=== PATIENT | male | born 1960 | race Caucasian/White ===

== ENCOUNTER 2017-07-21 | Emergency (ER) | payer MEDICAID, SELFPAY ==
[2017-07-21] VITALS: BP 166/91; PULSE 68; RESP 14; TEMP 36.7; O2SAT 98; BMI 31.4
--- NOTE | 2017-07-21 00:43 | CT_ITS ---
STUDY: CT BRAIN WITHOUT CONTRAST REASON FOR EXAM: Male, 57 years old. Right arm numbness and tingling. RADIATION DOSAGE (If Supplied By Facility): CTDIvol = ( 44.99 ) mGy, DLP = ( 846.73 ) mGycm TECHNIQUE: Transaxial CT imaging of the brain was performed without administration of intravenous contrast material. Individualized dose optimization techniques were used for this CT. COMPARISON: None. FINDINGS: Normal soft tissue structures. Normal calvarium. Normal size ventricles and extra-axial spaces for the patient's age. Normal white matter tracts of the cerebral hemispheres. Normal basal ganglia and thalami. Normal brainstem. Normal cerebellum. 3.5 x 2.0 cm posterior fossa midline cyst most compatible with either an arachnoid cyst or bailee cisterna magna, both of which are usually incidental findings. Mild scalloping of the inner cortex of the occipital bone left parasagittal which supports an arachnoid cyst. There is no intracranial hemorrhage. There are no findings of an acute ischemic infarction. 2.2 cm mucous retention cyst right maxillary sinus. Smaller bilateral maxillary sinus peripheral mucous retention cysts versus mucosal thickening right greater than left. Mild ethmoid sinus mucosal thickening. Large right tracy bullosa. CT/Brain/Head without Contrast IMPRESSION: No acute intracranial abnormality. If there is high clinical suspicion of an acute infarction if further imaging is warranted recommend MRI with diffusion-weighted images. Bilateral paranasal sinus disease. 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 Electronically Signed: Medhat Dunbar MD at 2:01 EDT , Service support ,
--- NOTE | 2017-07-21 00:43 | EKG12_ITS ---
Test Reason : NEURO Blood Pressure : / mmHG Vent. Rate : 059 BPM Atrial Rate : 059 BPM P-R Int : 160 ms QRS Dur : 096 ms QT Int : 392 ms P-R-T Axes : 020 -06 004 degrees QTc Int : 388 ms Sinus bradycardia Otherwise normal ECG Confirmed by DEN BARNHART, SATNAM ([id number]), acquisition editor REZA JOY ([id number] on 07/23/2017 2:45:05 PM Referred By: SHARATH Confirmed By:SATNAM CRENSHAW MD
[2017-07-21 00:59] LABS: Absolute Lymphocyte Count 1.78 X10^3/ul (0.83-4.51); Absolute Neutrophil Count 3.6 X10^3/uL (2.0-7.7); Basophil# 0.02 X10^3/uL; Basophil% 0.3 % (0-1); Eosinophil# 0.39 X10^3/uL; Eosinophils% 5.9 % (0-5); Hematocrit 46.1 % (40-54); Hemoglobin 15.8 g/dl (13.0-16.5); Lymphocyte # 1.78 X10^3/ul (4.0); Lymphocyte % 26.8 % (19-41); Mean Corp Hgb Conc 34.3 g/gl (32-36); Mean Corpuscular Hgb 30.2 pg (27.0-32.0); Mean Corpuscular Volume 88.1 fL (80-94); Mean Platelet Vol. 10.6 fl (6.2-12.0); Monocyte# 0.89 X10^3/uL; Monocyte% 13.4 % (0-10); Neutrophil # 3.55 X10^3/uL (2.7-7.7); Neutrophil % 53.3 % (47-70); POSITIVE COUNT NO; POSITIVE DIFFERENTIAL NO; POSITIVE MORPHOLOGY NO; Platelet Count 205 K/mm3 (150-450); RBC Distribution Width CV 11.8 % (11.6-14.6); RBC Distribution Width SD 37.6 fl (35.1-43.9); Red Blood Count 5.23 M/mm3 (4.6-6.2); White Blood Count 6.7 K/mm3 (4.4-11.0)
[2017-07-21 01:12] LABS: Anion Gap 6 (5-15); BUN 11 mg/dL (7-18); BUN/Creat Ratio 13.3 RATIO (10-20); Calcium,Total 8.7 mg/dL (8.5-10.1); Chloride 103 mmol/L (98-107); Creatinine, Serum 0.83 mg/dL (0.70-1.30); EST Glomerular Filtration Rate 103 mL/min (>60); Est Glom Filt Rate - Afr Amer 124 mL/min (>60); Estimated Creatinine Clearance 103.83 ml/min; Glucose 91 mg/dL (74-106); Potassium 3.8 mmol/L (3.5-5.1); Sodium Level 139 mmol/L (136-145)
--- NOTE | 2017-07-21 01:20 | RAD_ITS ---
STUDY: X-RAY CHEST REASON FOR EXAM: Male, 57 years old. Numbness and tingling right arm. Dizziness for one week. Cough for 2 to 3 weeks. TECHNIQUE: PA and lateral chest. COMPARISON: April 18, 2015. FINDINGS: The lungs are clear and expanded. There is no demonstrated pleural abnormality. Normal size heart. Normal mediastinum and cristi. Normal visualized pulmonary arteries. Normal visualized aortic arch and descending thoracic aorta. Degenerative changes of the thoracic spine. Normal visualized ribs, clavicles, and shoulders. There is no demonstrated abnormality of the visualized soft tissue structures of the upper abdomen. RAD/Chest PA and Lateral IMPRESSION: Stable chest, no acute cardiopulmonary disease. Electronically Signed: Medhat Dunbar MD at 2:24 EDT , Service support ,
--- NOTE | 2017-07-21 02:17 | ED.DCSUM_ITS ---
- ER Visit Summary Date of Service: 07/21/17 Chief Complaint: [] Paresthesia right arm and hand History of Present Illness: The patient is a 57 M stated he had paresthesia that lasted about an hour in his right arm and hand. He was at the store when it came on. He had a coughing fit in was having some heavy breathing got a little bit lightheaded and experiencing symptoms that resolved. He denies any other strokelike symptoms. He has had a cough for 7 days. Physical Examination: Vital signs reviewed General: Well-nourished well-developed Head: Normocephalic atraumatic Eyes: Pupils equal round and reactive to light extraocular movements intact ENT: TMs clear no hemotympanum no trauma Neck: Nontender full range of motion Cardiovascular: Regular rate rhythm no murmurs normal S1-S2 Respiratory: No distress clear to auscultation bilaterally chest nontender Abdomen: Soft nontender nondistended normal bowel sounds no masses Back: Nontender no CVA tenderness Extremities: Nontender active range of motion ?4 extremities no trauma Skin: Normal color no trauma Neuro alert oriented cranial nerves II through XII intact normal strength sensation reflexes Test Results: [] Emergency Department Course and Treatment: [] CT head shows nothing acute. 3.5 cm posterior fossa cyst likely arachnoid cyst. Patient educated about this and will follow-up with neurology. EKG shows sinus at 61 without acute findings. CBC chemistry troponin negative. Chest x-ray shows nothing acute. Patient was reassured. Of a low suspicion for TIA or stroke. He will return if he develops symptoms again. He will follow-up with neuro. Treatment Plan: [] Disposition: [] Impression: [] Right-sided arm paresthesia resolved Bronchitis This note was generated with [employer] dictation software. It may contain incorrect words, spelling, and punctuation that were not noted in review of the chart prior to signing ED Disposition - Plan for ED Patient: Chief Complaint: Numb/Ting Referrals: Juan Ramon Ray DO [Primary Care Provider] -
--- NOTE | 2017-07-21 02:17 | ED.DEP ---
ED Disposition - Plan for ED Patient: Disposition: Home or Assisted Living Chief Complaint: Numb/Ting Instructions: ED Paraesthesias, Acute Bronchitis Referrals: Juan Ramon Ray DO [Primary Care Provider] - Yon Hoover MD [STAFF PHYSICIAN] -
[2017-07-21 02:42] VITALS: PULSE 64; RESP 18; O2SAT 98
== END 2017-07-21 02:43 | disposition home or self-care (01) ==
PROVIDERS: Emergency Provider Emergency Medicine; Family Provider Student in an Organized Health Care Education/Training Program; PCP Student in an Organized Health Care Education/Training Program
DX: R20.2 Paresthesia of skin (principal); J40 Bronchitis, not specified as acute or chronic; M85.48 Solitary bone cyst, other site; Z79.891 Long term (current) use of opiate analgesic; Z79.899 Other long term (current) drug therapy
CPT/HCPCS: 70450; 71046; 80048; 84484; 85025; 93005; 99285; A4216

== ENCOUNTER 2017-08-20 13:19 | Emergency (ER) | payer MEDICAID, SELFPAY ==
[2017-08-20 13:19] VITALS: BP 147/76; PULSE 81; RESP 18; TEMP 36.5; O2SAT 98; BMI 29.4
--- NOTE | 2017-08-20 13:57 | ED.VISSUMM ---
- ER Visit Summary Date of Service: 08/20/17 Chief Complaint: Acute on chronic back pain History of Present Illness: The patient is a 57 M history of chronic back pain. Has an L4 disc that was diagnosed 2 years ago with an MRI in 2016. Patient has previously seen a spine surgeon and was told and there is nothing to do at that time. He states the pain seems to be getting worse. He denies any bowel or bladder incontinence. He denies any recent falls or trauma. He denies any fever. He denies any leg weakness. Previously he had gotten spinal injections in the past. And also seen 2 different pain management physicians. Physical Examination: Well-appearing male. Vital signs are stable afebrile. He does not seem necrotizing. He is sitting in a wheelchair in no distress. H EENT exam unremarkable. Lungs clear to auscultation. Heart regular rate and rhythm no murmur. Abdomen soft nontender. He is moving all 4 extremities. Neurovascular intact. There is no cauda equina or saddle anesthesia lower extremities. He has normal medial thigh sensation. Dorsi plantar flexion intact. Negative straight leg raise. Has reproducible pain in the lumbar spine. There is no ecchymoses or bruising. No signs of trauma. No redness or warmth. No signs of discitis. The paraspinal soft tissues are unremarkable. Neurologic exam is normal. And no cauda equina. No weakness or numbness in lower extremities. Dorsi plantar flexion intact. Test Results: None. Emergency Department Course and Treatment: Just with the patient. He is to follow-up with primary care physician or he is trying to get in the [facility] to see the spine surgeons. He does not meet criteria to need an emergent MRI today. He will be given IM injection of Toradol discharged home on anti-inflammatories. Treatment Plan: NSAIDs for pain and inflammation. Call and follow up with ventilator specialist. Disposition: Discharged Impression: Acute on chronic back pain History of L4 degenerative disc disease This note was generated with [employer] dictation software. It may contain incorrect words, spelling, and punctuation that were not noted in review of the chart prior to signing ED Disposition - Plan for ED Patient: Chief Complaint: Back Referrals: Juan Ramon Ray DO [Primary Care Provider] -
--- NOTE | 2017-08-20 14:01 | ED.DCSUM_ITS ---
- ER Visit Summary Date of Service: 08/20/17 Chief Complaint: Acute on chronic back pain History of Present Illness: The patient is a 57 M history of chronic back pain. Has an L4 disc that was diagnosed 2 years ago with an MRI in 2016. Patient has previously seen a spine surgeon and was told and there is nothing to do at that time. He states the pain seems to be getting worse. He denies any bowel or bladder incontinence. He denies any recent falls or trauma. He denies any fever. He denies any leg weakness. Previously he had gotten spinal injections in the past. And also seen 2 different pain management physicians. Physical Examination: Well-appearing male. Vital signs are stable afebrile. He does not seem necrotizing. He is sitting in a wheelchair in no distress. H EENT exam unremarkable. Lungs clear to auscultation. Heart regular rate and rhythm no murmur. Abdomen soft nontender. He is moving all 4 extremities. Neurovascular intact. There is no cauda equina or saddle anesthesia lower extremities. He has normal medial thigh sensation. Dorsi plantar flexion intact. Negative straight leg raise. Has reproducible pain in the lumbar spine. There is no ecchymoses or bruising. No signs of trauma. No redness or warmth. No signs of discitis. The paraspinal soft tissues are unremarkable. Neurologic exam is normal. And no cauda equina. No weakness or numbness in lower extremities. Dorsi plantar flexion intact. Test Results: None. Emergency Department Course and Treatment: Just with the patient. He is to follow-up with primary care physician or he is trying to get in the [place] [facility] to see the spine surgeons. He does not meet criteria to need an emergent MRI today. He will be given IM injection of Toradol discharged home on anti-inflammatories. Treatment Plan: NSAIDs for pain and inflammation. Call and follow up with nail specialist. Disposition: Discharged Impression: Acute on chronic back pain History of L4 degenerative disc disease This note was generated with [employer] dictation software. It may contain incorrect words, spelling, and punctuation that were not noted in review of the chart prior to signing ED Disposition - Plan for ED Patient: Chief Complaint: Back Referrals: Juan Ramon Ray DO [Primary Care Provider] -
--- NOTE | 2017-08-20 14:01 | ED.DEP ---
ED Disposition - Plan for ED Patient: Disposition: Home or Assisted Living Chief Complaint: Back Instructions: ED Neck Back Pain General Referrals: Juan Ramon Ray DO [Primary Care Provider] - As soon as possible Additional Instructions: Motrin or Advil for pain. Call follow-up with you the [facility] or your primary care physician. If this is not improving they may choose to do a repeat MRI. Return to the ER if fever, leg weakness or bowel or bladder incontinence.
[2017-08-20] MEDS: Ketorolac 60 MG/2 ML Vial IM (14:06)
[2017-08-20 14:42] VITALS: BP 121/77; PULSE 73; RESP 16; O2SAT 97
== END 2017-08-20 14:42 | disposition home or self-care (01) ==
PROVIDERS: Emergency Provider Emergency Medicine; Family Provider Student in an Organized Health Care Education/Training Program; PCP Student in an Organized Health Care Education/Training Program
DX: M54.5 Low back pain (principal); G89.29 Other chronic pain; M51.36 Other intervertebral disc degeneration, lumbar region; Z79.891 Long term (current) use of opiate analgesic; Z79.899 Other long term (current) drug therapy
CPT/HCPCS: 96372; 99282

== ENCOUNTER 2019-12-23 20:42 | Emergency (ER) | payer MEDICAID, SELFPAY ==
[2019-12-23 20:42] VITALS: BP 126/73; PULSE 78; RESP 18; TEMP 35.3; O2SAT 98; BMI 30.8
[2019-12-23 22:33] VITALS: BP 131/74
--- NOTE | 2019-12-23 23:21 | RAD_ITS ---
STUDY: X-RAY - LUMBAR SPINE REASON FOR EXAM: Male, 59 years old. NKI -- C/O LBP X 2 DAYS TECHNIQUE: 3 view(s) of the lumbar spine were obtained. COMPARISON: None FINDINGS: Normal lumbar lordosis. There is no substantial scoliosis. There is a normal alignment of the vertebrae. Normal vertebral bodies. There is mild spondylosis at multiple levels.. Normal disc space heights. The soft tissue structures are unremarkable. RAD/Lumbar Spine 2 or 3 Views IMPRESSION: Mild multilevel degenerative changes. Electronically Signed: Yrn Luong MD at 0:19 EDT , Service support ,
--- NOTE | 2019-12-23 23:22 | ED.DCSUM_ITS ---
History of Present Illness Chief Complaint: Back Informant: Patient Narrative: 59-year-old male presenting with back pain. He states he has had back pain in the past but this is acute exacerbation. Patient states he bent over yesterday and after standing up he felt a twinge. Over the course of the last 24 hours his back pain is worse. He is ambulatory but states it hurts to walk. He has no paresthesias. He has no loss of bladder or bowel control. No urinary retention. No saddle paresthesias. Patient denies any trauma to the back. Past Medical History - Allergies and Home Meds Allergies/Adverse Reactions: Allergies bupropion HCl [From Wellbutrin] Allergy (Verified 08/20/17 13:21) felt weird codeine Allergy (Verified 08/20/17 13:21) Swelling melatonin Allergy (Verified 08/20/17 13:21) Nausea peanut Allergy (Verified 08/20/17 13:21) doesn't feel good procaine HCl [From Novocain] Adverse Reaction (Verified 08/20/17 13:21) doesn't work TUMERIC Allergy (Uncoded 07/21/17 00:05) feels like he is poisoned Primary Care Physician: Juan Ramon Ray DO [Primary Care Provider] - Past Medical History: - - Denies medical problems. Surgical History: noncontributory Lives: Spouse/ Significant Other Smoking Status: Never smoker Alcohol: None Drugs: None Review of Systems General: Denies: Chills, Fever, Sweats Eyes: Denies: Visual changes - bilaterally, Diplopia ENT: Denies: Rhinorrhea, Sore throat Cardiovascular: Denies: Chest pain, Palpitations Respiratory: Denies: Dyspnea, Cough, Dyspnea on exertion Gastrointestinal: Denies: Abdominal pain, Nausea, Vomiting, Diarrhea, Melena, Hematochezia Genitourinary: Denies: Dysuria, Hematuria, Frequency Musculoskeletal: Reports: Back pain Skin: Denies: Rash, Wounds Neurological: Denies: Headache, Weakness, Numbness Physical Exam Vital Signs/Narrative: Vital Signs Temp Pulse Resp BP Pulse Ox 12/23/19 22:33 131/74 H 12/23/19 20:42 95.5 F L 78 18 126/73 H 98 Inital Vital Signs reviewed: Yes General: Well nourished, No Acute Distress Head: Normocephalic, Atraumatic Eyes: Perrl ENT: Moist mucous membranes, No rhinorrhea Cardiovascular: Regular rate, Regular rhythm Respiratory: No distress, CTA bilaterally Abdomen: Soft, Nontender Back: - - Tenderness to palpation bilateral lumbar paraspinal musculature. There is no midline deformity or step-off. Extremities: Nontender, No edema Skin: Normal color, No rash Neurological: Alert, Oriented x3 Psychological: Normal affect, Normal Mood Diagnostic/Tx/Re-eval Clinical Impression(s) from Imaging Studies Lumbar Spine X-Ray 12/23/19 23:21 IMPRESSION: Mild multilevel degenerative changes. Electronically Signed: Yrn Luong MD at 0:19 EDT , Service support , - Medical Decision Making Patient presents with back pain after bending over yesterday. He states he got worse today. On exam he has no midline spinal tenderness or step-off. I did obtain an x-ray of the lumbar spine which showed degenerative changes. He was treated with Toradol and Flexeril. He did have some improvement. He is c ounseled on alternating ice and heat. He was given a work note he says he does a lot of bending at work. Patient does not have any red flag signs or symptoms which warrant further work-up. Patient is stable for discharge. Impression: 1. Lumbar strain ED Disposition - Plan for ED Patient: Disposition: Home or Assisted Living Instructions: ED LUMBAR SPRAIN/STRAIN Prescriptions: Cyclobenzaprine HCl 10 mg PO DAILY PRN PRN #10 tab PRN Reason: pain Transmission Status: Received by [facility] Ibuprofen 600 mg PO Q8H PRN PRN #30 tab PRN Reason: pain Transmission Status: Received by [facility] Referrals: Juan Ramon Ray DO [Primary Care Provider] -
[2019-12-23] MEDS: Ketorolac 15 MG/ML Vial IM (23:39)
[2019-12-24] MEDS: cycloBENZAPRine HCl 10 MG Tablet PO
[2019-12-24] MEDS: Ondansetron ODT 4 MG Tablet PO
[2019-12-24 01:06] VITALS: BP 128/62; PULSE 87; RESP 15; O2SAT 98
== END 2019-12-24 01:06 | disposition home or self-care (01) ==
PROVIDERS: Emergency Provider Student in an Organized Health Care Education/Training Program; PCP Student in an Organized Health Care Education/Training Program
DX: S39.012A Strain of muscle, fascia and tendon of lower back, initial encounter (principal); X58.XXXA Exposure to other specified factors, initial encounter
CPT/HCPCS: 72100; 96372; 99283

== ENCOUNTER 2021-05-04 14:41 | Emergency (ER) | payer MEDICAID, SELFPAY ==
[2021-05-04 14:42] VITALS: BP 138/84; PULSE 68; RESP 16; TEMP 36.8; O2SAT 98; BMI 30.7
[2021-05-04 14:58] VITALS: BP 138/84; PULSE 68; RESP 16; TEMP 36.8; O2SAT 98
--- NOTE | 2021-05-04 15:04 | CT_ITS ---
STUDY: CT ABDOMEN AND PELVIS WITH CONTRAST REASON FOR EXAM: Male, 61 years old. Abdominal Pain RLQ RADIATION DOSAGE (If Supplied By Facility): CTDIvol = ( 15.87 ) mGy, DLP = ( 1258.87 ) mGycm TECHNIQUE: Transaxial images were obtained from the dome of the diaphragm to the symphysis pubis without oral contrast. IV 100mL Isovue-300 was administered. Sagittal and coronal images were reconstructed. Individualized dose optimization techniques were used for this CT. COMPARISON: None. FINDINGS: The visualized lung bases are unremarkable. The visualized portions of the heart are within normal limits. Normal liver. There are surgical clips in the gallbladder fossa consistent with a prior cholecystectomy. Mild intrahepatic biliary ductal dilatation. Normal spleen. Normal pancreas. Normal bilateral adrenal glands. Normal right kidney. Normal left kidney. Normal visualized stomach. Normal small intestine. Normal colon. The appendix is visualized and appears normal. Normal abdominal aorta. Normal inferior vena cava. Normal retroperitoneum. Normal urinary bladder. Normal abdominal wall. Normal osseous structures. CT/Abdomen/Pelvis W IV Cont ONLY IMPRESSION: Normal enhanced CT of the abdomen and pelvis. Electronically Signed: Alcides Morgan MD at 16:56 EST ,
--- NOTE | 2021-05-04 15:04 | ED.VIS.GI ---
HPI HPI - GI History of Present Illness Chief Complaint: Abd Pain Narrative Narrative: Patient presents with right lower quadrant pain that he has had for the last 3 days. He states 4 days ago the had a Nathaly republican that was belated, and he thought he may have eaten too much. He complained of abdominal bloating and the feeling like he had a bulging vein in his right lower quadrant. Since Sunday, 3 days ago, he had pain mainly in the right lower quadrant of his abdomen. He feels mildly constipated. He denies any fevers or chills. He is nauseated but has not vomited. He denies diarrhea. Past surgical history includes cholecystectomy remotely. He does have problems with chronic back pain but has not been taking any medication for it. He did have a nerve ablation in his back a few months ago. His concern is that he is having problems with his right lower quadrant abdominal pain. PFSH PFS Home Medications famotidine 20 mg PO DAILY 05/04/21 [History Last Taken Unknown] Allergy/AdvReac Type Severity Reaction Status Date / Time bupropion HCl Allergy felt Verified 05/04/21 14:42 [From Wellbutrin] weird codeine Allergy Swelling Verified 05/04/21 14:42 melatonin Allergy Nausea Verified 05/04/21 14:42 peanut Allergy doesn't Verified 05/04/21 14:42 feel good procaine HCl [From Novocain] AdvReac doesn't Verified 05/04/21 14:42 work TUMERIC Allergy feels Uncoded 05/04/21 14:42 like he is poisoned Social History Smoking Status: Never smoker ROS ROS ED ROS Narrative Constitutional: No fever, no chills. HEENT: No sore throat. No neck pain. No loss of vision. No rhinorrhea. Cardiovascular: No chest pain. No palpitations. No pedal edema. Respiratory: No cough, no shortness of breath. Abdominal: Right lower quadrant abdominal pain. Abdominal bloating. Positive nausea. No vomiting. Mild constipation/obstipation, no diarrhea. Genitourinary: No dysuria. No hematuria. Musculoskeletal: No myalgias. No arthralgias. Neurologic: No headaches. No dizziness. No lightheadedness. Skin: No rash. No change in color. Psychiatric: No depression. No anxiety. EXAM Physical Exam Narrative Exam Narrative: Afebrile. Vital signs noted. HEENT: Normocephalic. Atraumatic. PERRL, EOMI. Neck soft and supple. No point tenderness or step off. Cardiovascular: Regular rate and rhythm. No murmurs, rubs, or gallops appreciated. Respiratory: No tachypnea. Lungs clear to auscultation bilaterally. Gastrointestinal: Abdomen soft, with mild tenderness over right lower quadrant near the area of McBurney's point, with normoactive bowel sounds. No rebound or guarding. No peritoneal signs, negative heel strike. Neurological: Awake. Alert. Nonfocal, nonlateralizing. Skin: No rash. Normal color. No pallor. Musculoskeletal: No pedal edema. Full range of motion extremities. Const Vital Signs: 05/04/21 14:42 05/04/21 14:58 05/04/21 16:47 Temperature 98.2 F 98.2 F Temperature Source Temporal Temporal Pulse Rate 68 68 Respiratory Rate 16 16 18 Blood Pressure 138/84 H 138/84 H Blood Pressure Mean 102 102 Pulse Ox 98 98 Oxygen Delivery Method Room Air Room Air MDM MDM MDM Narrative Medical decision making narrative: Comprehensive work-up was pursued. I will obtain laboratory work, UA, and CT imaging with IV contrast to look for an acute appendicitis versus diverticulitis. He was administered Zofran for his nausea. His laboratory work is grossly unremarkable. CBC shows normal white count of 9.8. Electrolyte panel is grossly unremarkable, glucose appropriately elevated at 121 with anion gap of 5. Urinalysis is negative for infection. He is resting comfortably reading a book in a chair. At this point in time, given a negative CT that shows no evidence of appendicitis or any other acute process, I feel he can be discharged safely home with follow-up to his primary care physician. He may be having more of an abdominal wall strain. Disposition is discharged home in stable condition. Return instructions were reviewed. Lab Data Attestation: I reviewed the patient's lab results. Labs: Laboratory Results - last 24 hr 05/04/21 05/04/21 05/04/21 15:23 15:23 16:29 WBC 9.8 RBC 5.42 Hgb 16.5 Hct 48.0 MCV 88.6 MCH 30.4 MCHC 34.4 RDW Std Deviation 37.9 RDW Coeff of Angie 11.9 Plt Count 234 MPV 10.4 Immature Gran % (Auto) 0.400 Neut % (Auto) 83.9 H Lymph % (Auto) 8.5 L [place] % (Auto) 6.5 Eos % (Auto) 0.5 Baso % (Auto) 0.2 Absolute Neuts (auto) 8.2 H Absolute Lymphs (auto) 0.83 Nucleated RBC % 0 Sodium 138 Potassium 4.3 Chloride 107 Carbon Dioxide 26.0 Anion Gap 5 BUN 11 Creatinine 0.82 Estim Creat Clear Calc 100.15 Est GFR (MDRD) Af Amer 124 Est GFR (MDRD) Non-Af 103 BUN/Creatinine Ratio 13.5 Glucose 121 H Calcium 8.9 Urine Color Yellow Urine Clarity Sl. Cloudy Urine pH 6.0 Ur Specific [place] 1.010 Urine Protein Negative Urine Glucose (UA) Normal Urine Ketones Negative Urine Occult Blood Negative Urine Nitrite Negative Urine Bilirubin Negative Urine Urobilinogen Normal Ur Leukocyte Esterase Negative Radiography Diagnostic Testing: Clinical Impression(s) from Imaging Studies Abdomen/Pelvis CT 05/04/21 15:04 IMPRESSION: Normal enhanced CT of the abdomen and pelvis. Electronically Signed: Alcides Morgan MD at 16:56 EST , Discharge Plan Triage Chief Complaint: Abd Pain ED Provider: Moustapha Key Dx/Rx/DC Orders Clinical Impression: Abdominal pain, acute, right lower quadrant Instructions: ED Abdominal Pain Unkn Cause Male... Prescriptions: No Action famotidine 20 mg tablet 20 mg PO DAILY RF: 0 Primary Care Provider: Juan Ramon Ray Referrals: Juan Ramon Ray DO [Primary Care Provider] - 05/06/21 Disposition Disposition: Home, Self Care
[2021-05-04] MEDS: 0.9% Normal Saline 1,000 ML 1000 ML IV (15:22)
[2021-05-04] MEDS: Ondansetron 4 MG/2 ML Vial IV (15:23)
[2021-05-04 15:38] LABS: Absolute Lymphocyte Count 0.83 X10^3/uL (0.83-4.51); Absolute Neutrophil Count 8.2 X10^3/uL (2.0-7.7); Basophil# 0.02 X10^3/uL; Basophil% 0.2 % (0-1); Eosinophil# 0.05 X10^3/uL; Eosinophils% 0.5 % (0-5); Hemoglobin 16.5 g/dL (13.0-16.5); Lymphocyte # 0.83 X10^3/ul (0.83-4.51); Lymphocyte % 8.5 % (19-41); Mean Corp Hgb Conc 34.4 g/dL (32-36); Mean Corpuscular Hgb 30.4 pg (27.0-32.0); Mean Corpuscular Volume 88.6 fL (80-94); Mean Platelet Vol. 10.4 fl (6.2-12.0); Monocyte# 0.64 X10^3/uL; Monocyte% 6.5 % (0-10); NRBC Flagged by Analyzer 0 % (0-5); Neutrophil % 83.9 % (47-70); Platelet Count 234 K/mm3 (150-450); RBC Distribution Width CV 11.9 % (11.6-14.6); RBC Distribution Width SD 37.9 fl (35.1-43.9); Red Blood Count 5.42 M/mm3 (4.6-6.2); White Blood Count 9.8 K/mm3 (4.4-11.0)
[2021-05-04 16:07] LABS: Anion Gap 5 (5-15); BUN 11 mg/dL (7-18); BUN/Creat Ratio 13.5 RATIO (10-20); Calcium,Total 8.9 mg/dL (8.5-10.1); Chloride 107 mmol/L (98-107); Creatinine, Serum 0.82 mg/dL (0.70-1.30); EST Glomerular Filtration Rate 103 mL/min (>60); Est Glom Filt Rate - Afr Amer 124 mL/min (>60); Estimated Creatinine Clearance 100.15 ml/min; Glucose 121 mg/dL (74-106); Potassium 4.3 mmol/L (3.5-5.1); Sodium Level 138 mmol/L (136-145)
[2021-05-04 16:34] LABS: Bacteria 0 SEEN /hpf (None Seen); Mucous, Urine 0 SEEN /hpf (<or=2+); Red Blood Cells-Urine 0 SEEN /hpf (0-5); White Blood Cells 0 SEEN /hpf (0-5)
[2021-05-04 16:47] VITALS: RESP 18
[2021-05-04 17:08] LABS: Color, Urine Yellow (Yellow); Glucose, Dipstick Normal (Normal); Ketone-Dipstick Negative (Negative); Protein-Dipstick Negative (Negative); Urine Bilirubin Dipstick Negative (Negative); Urine Clarity Sl. Cloudy (Clear)
[2021-05-04 17:09] LABS: Leukocyte Esterase-Dipstick Negative /ul (Negative); Nitrite-Dipstick Negative (Negative); Occult Blood-Urine Negative /ul (Negative); Urine Urobilinogen Normal (Normal)
[2021-05-04 17:30] LABS: Squamous Epithelial Cells - UA 0-5 SEEN /hpf (0-5)
== END 2021-05-04 17:46 | disposition home or self-care (01) ==
PROVIDERS: Emergency Provider Emergency Medicine; PCP Student in an Organized Health Care Education/Training Program; Visit Provider Emergency Medicine
DX: R10.11 Right upper quadrant pain (principal); R11.0 Nausea; G89.29 Other chronic pain; M54.9 Dorsalgia, unspecified; Z79.899 Other long term (current) drug therapy
CPT/HCPCS: 74177; 80048; 81001; 85025; 96361; 96374; 99283; J7030; Q9967; J2405

== ENCOUNTER 2021-10-05 02:23 | Emergency (ER) | payer MEDICAID, SELFPAY ==
[2021-10-05 02:26] VITALS: BP 162/84; PULSE 67; RESP 16; TEMP 36.6; O2SAT 100; BMI 29.8
[2021-10-05 02:28] VITALS: BP 162/84; PULSE 67; RESP 16; TEMP 36.6; O2SAT 100
--- NOTE | 2021-10-05 02:41 | EKG12_ITS ---
Test Reason : DYSRHYTHMIA Blood Pressure : / mmHG Vent. Rate : 061 BPM Atrial Rate : 061 BPM P-R Int : 166 ms QRS Dur : 096 ms QT Int : 396 ms P-R-T Axes : 031 008 019 degrees QTc Int : 398 ms Normal sinus rhythm Normal ECG Confirmed by DEN BARNHART, SATNAM ([id number]), food expeditor SKYE DANGELO ([id number]) on 10/08/2021 9:44:09 AM Referred By: KALIE Confirmed By:SATNAM CRENSHAW MD
--- NOTE | 2021-10-05 02:41 | RAD_ITS ---
STUDY: X-RAY CHEST REASON FOR EXAM: Male, 61 years old. SOB TECHNIQUE: Single AP portable view of the chest. 2:43 AM. COMPARISON: Previous chest radiographs of 07/21/2017 and 04/18/2015.. FINDINGS: The lungs are clear and expanded. There is no demonstrated pleural abnormality. Normal size heart. Normal mediastinum and cristi. Normal visualized pulmonary arteries. Stable mild elongation of the thoracic aorta. No acute osseous abnormality. Thoracic degenerative spurring again noted. There is no demonstrated abnormality of the visualized soft tissue structures of the upper abdomen. RAD/Chest 1 View (Portable) IMPRESSION: No significant interval change or acute process. Electronically Signed: Jono Iraheta MD at 3:25 EDT ,
--- NOTE | 2021-10-05 02:42 | ED.VIS.DYS ---
HPI History of Present Illness Chief Complaint: Shortness of Breath Informant: patient Narrative Narrative: Patient states he has had symptoms of COVID since last Sunday. He started with myalgias nausea soft bowel movements decreased energy and decreased appetite. He then lost his taste and smell. He has been coughing. He will sometimes bring up a little bit of clear sputum in the morning but generally not. Not having hemoptysis. Not having chest pain. He did have headaches but those are better. He gets mild nausea but that is actually made better when he forces himself to eat. He came in tonight because he feels short of breath. He states some of this is the COVID. He thinks some of it is because he has no air conditioning, his house was very hot and he lives alone and he gets a little concerned with having COVID living alone. But it is hard for him to separate how much his physical dyspnea versus in his head. He has not had any vaccines. He was tested at urgent care on Sunday and found to be positive for COVID. He is not on any meds. He is not taking Paxlovid. Patient has no recent travel surgery immobilization personal or family history of DVT or PE. No history of heart disease. No diabetes blood pressure high cholesterol. He is a former smoker but quit sometime ago. PFSH PFSH Home Medications NK 10/05/21 [History Last Taken Unknown] Allergy/AdvReac Type Severity Reaction Status Date / Time bupropion HCl Allergy felt Verified 10/05/21 02:25 [From Wellbutrin] weird codeine Allergy Swelling Verified 10/05/21 02:25 melatonin Allergy Nausea Verified 10/05/21 02:25 peanut Allergy doesn't Verified 10/05/21 02:25 feel good procaine HCl [From Novocain] AdvReac doesn't Verified 10/05/21 02:25 work TUMERIC Allergy feels Uncoded 10/05/21 02:25 like he is poisoned Social History Smoking Status: Never smoker ROS ROS ED Constitutional Constitutional ED: Reports chills and fever(s); Denies weight loss Eyes Eyes: Denies change in vision ENT ENT ED: Reports sore throat; Denies rhinorrhea Cardiovascular Cardiovascular: Denies chest pain, palpitations or racing heartbeat Respiratory/Chest Respiratory/Chest: Reports cough and dyspnea Gastrointestinal Gastrointestinal: Reports diarrhea and nausea; Denies abdominal pain or vomiting Genitourinary Genitourinary ED: Denies hematuria Musculoskeletal Musculoskeletal: Reports arthralgias and myalgias Integumentary Denies rash Neurologic Neurologic: Reports headache(s) Endocrine Endocrinology: Denies polydipsia or polyuria Hematologic/Lymphatic Hematologic/Lymphatic: Denies easy bleeding, easy bruising or lymphadenopathy Allergic/Immunologic Allergic/Immunologic ED: Denies urticaria EXAM Physical Exam Const Vital Signs: 10/05/21 02:26 10/05/21 02:28 10/05/21 02:54 Temperature 98 F 98 F Temperature Source Temporal Temporal Pulse Rate 67 67 72 Respiratory Rate 16 16 16 Respiratory Pattern Normal Blood Pressure 162/84 H 162/84 H Blood Pressure Mean 110 Pulse Ox 100 100 Oxygen Delivery Method Room Air Room Air Positive well nourished and well developed General Appearance ED: well developed and NAD HEENT Reports moist mucous membranes atraumatic Eyes EOMs intact bilaterally General Eye ED: Negative for scleral icterus Neck no JVD Resp normal respiratory effort Resp Narrative: Mild decreased breath sounds throughout. But I hear no wheezing. He does have a history of childhood asthma but has not used an inhaler in many years Auscultation: diminished lung sounds; Negative for rales, rhonchi or wheezes Cardio regular rate and regular rhythm Rate: Negative for tachycardic GI non-tender and non-distended Palpation: soft Back/Spine no CVA tenderness Extremity normal to inspection General Extremety ED: Negative for edema or tenderness General Extremity: Negative for edema Neuro Sensorium / Orientation: alert Psych mental status grossly normal Skin no wounds Rashes: no rashes MDM MDM MDM Narrative Medical decision making narrative: Patient had trouble getting CTA. He states he just feels extremely anxious now. We will give him a dose of Ativan to try to help this. Labs show low white count on CBC. Rest of CBC is essentially normal. Electrolytes overall normal except minimal elevation glucose of 120. Troponin is negative. D-dimer was mildly elevated. For this reason we are going to do a CTA. Patient was initially too anxious to lay down for this. We are going to give him Ativan. But patient states he coughed up just some thicker mucus type sputum. He states his symptoms are gone. He does not feel anxious or short of breath. He states he does not want to stay for the CT. He just wants to go home. I discussed the finding of the D-dimer and the risks for pulmonary embolus with KAROLYN. But he feels asymptomatic at this point. I encouraged him to come back if he has any further symptoms or concerns. That our best medical advice would be to get the CTA at this point since we already have an elevated D-dimer. It may not be significantly elevated but it is still abnormal. He would like to go he states the albuterol did not really change his symptoms. He states also that albuterol usually makes him jittery and he does not want a prescription. We discussed returning and home care. Chest x-ray did not show any acute changes. Lab Data Attestation: I reviewed the patient's lab results. Labs: Laboratory Results - last 24 hr 10/05/21 10/05/21 10/05/21 02:03 02:03 02:03 WBC 3.8 L RBC 5.29 Hgb 15.6 Hct 46.6 MCV 88.1 MCH 29.5 MCHC 33.5 RDW Std Deviation 37.0 RDW Coeff of Angie 11.6 Plt Count 135 L MPV 11.0 Immature Gran % (Auto) 0.300 Neut % (Auto) 37.7 L Lymph % (Auto) 45.8 H [place] % (Auto) 13.0 H Eos % (Auto) 2.9 Baso % (Auto) 0.3 Absolute Neuts (auto) 1.4 L Absolute Lymphs (auto) 1.73 Nucleated RBC % 0 D-Dimer Quant (PE/DVT) 0.61 H* Sodium 140 Potassium 4.6 Chloride 107 Carbon Dioxide 29.0 Anion Gap 4 L BUN 11 Creatinine 0.80 Estim Creat Clear Calc 102.66 Est GFR (MDRD) Af Amer 126 Est GFR (MDRD) Non-Af 104 BUN/Creatinine Ratio 13.7 Glucose 120 H Calcium 8.7 Troponin I High Sens 4 Radiography Diagnostic Testing: Clinical Impression(s) from Imaging Studies Chest X-Ray 10/05/21 02:41 IMPRESSION: No significant interval change or acute process. Electronically Signed: Jono Iraheta MD at 3:25 EDT , Discharge Plan Triage Chief Complaint: Shortness of Breath ED Provider: Tim Harkins Dx/Rx/DC Orders Clinical Impression: COVID-19, Left against medical advice Instructions: Coronavirus Disease 2019 (COVID-19): Caring for Yourself or Others Prescriptions: No Action NK Primary Care Provider: Juan Ramon Ray Referrals: Juan Ramon Ray, DO [Primary Care Provider] - 3-5 Days if not improving Disposition Disposition: Home, Self Care
[2021-10-05 02:54] VITALS: PULSE 72; RESP 16
[2021-10-05] MEDS: Ipratropium/Albuterol Sulfate 3 ML AMPUL.NEB INHALATION (02:54)
[2021-10-05 02:58] LABS: Absolute Lymphocyte Count 1.73 X10^3/uL (0.83-4.51); Absolute Neutrophil Count 1.4 X10^3/uL (2.0-7.7); Basophil# 0.01 X10^3/uL; Basophil% 0.3 % (0-1); Eosinophil# 0.11 X10^3/uL; Eosinophils% 2.9 % (0-5); Hematocrit 46.6 % (40-54); Hemoglobin 15.6 g/dL (13.0-16.5); Lymphocyte # 1.73 X10^3/ul (0.83-4.51); Lymphocyte % 45.8 % (19-41); Mean Corp Hgb Conc 33.5 g/dL (32-36); Mean Corpuscular Hgb 29.5 pg (27.0-32.0); Mean Corpuscular Volume 88.1 fL (80-94); Monocyte# 0.49 X10^3/uL; NRBC Flagged by Analyzer 0 % (0-5); Neutrophil # 1.43 X10^3/uL (2.7-7.7); Neutrophil % 37.7 % (47-70); Platelet Count 135 K/mm3 (150-450); RBC Distribution Width CV 11.6 % (11.6-14.6); Red Blood Count 5.29 M/mm3 (4.6-6.2); White Blood Count 3.8 K/mm3 (4.4-11.0)
[2021-10-05 03:25] LABS: Anion Gap 4 (5-15); BUN 11 mg/dL (7-18); BUN/Creat Ratio 13.7 RATIO (10-20); Calcium,Total 8.7 mg/dL (8.5-10.1); Chloride 107 mmol/L (98-107); EST Glomerular Filtration Rate 104 mL/min (>60); Est Glom Filt Rate - Afr Amer 126 mL/min (>60); Estimated Creatinine Clearance 102.66 ml/min; Glucose 120 mg/dL (74-106); Potassium 4.6 mmol/L (3.5-5.1); Sodium Level 140 mmol/L (136-145); Troponin-I HS 4 pg/mL (3.0-78.0)
[2021-10-05 03:29] LABS: D-Dimer Quantitative (DVT/PE) 0.61 FEU/ug/m (0.27-0.49)
--- NOTE | 2021-10-05 04:26 | ED.RN ---
this rn went to administer ativan. pt sitting at bedside. stated he coughed hard and no longer feels like he can't breath. refuses ativan at this time. states it will just knock me out and i don't want it know
[2021-10-05 04:54] VITALS: BP 144/74; PULSE 68; RESP 18; O2SAT 98
== END 2021-10-05 04:54 | disposition home or self-care (01) ==
PROVIDERS: Emergency Provider Emergency Medicine; PCP Student in an Organized Health Care Education/Training Program; Visit Provider Emergency Medicine
DX: U07.1 COVID-19 (principal); Z53.29 Procedure and treatment not carried out because of patient's decision for other reasons
CPT/HCPCS: G0463; 71045; 80048; 84484; 85025; 85379; 93005; 94640; 99251; 99283; A4216

== ENCOUNTER → 2021-10-31 | Outpatient (CLI) | payer MEDICAID, SELFPAY ==
--- NOTE | 2021-10-31 | FLU_PTH ---
PATIENT: JONNY NOLAN LOC: [facility] U#:[id number] AGE/SX: 61/M ROOM: RE10/31/[address]: Dr. Alfredito Lazar MD : 1960 BED: DIS: 10/31/2021 SPEC #: [id number] RECD: 10/31/21 17:02 STATUS: [facility] KATE #: [id number] NAOMI: 10/31/21 00:[address]: Alfredito Lazar DEPT: CYTOLOGY RECD BY: Regis Jeronimo ENTERED: 11/01/21 08:36 SP TYPE: Fluid OTHR DR: Dr. Juan Ramon Ray DO Tissues: A - Thyroid gland, NOS B - Thyroid gland, NOS Procedures: Special Stain Group II Surgery Specimen Level IV Cytospin Fluid HEADER OPERATION: Fine needle aspiration right thyroid nodule PRE-OP DIAGNOSIS: Abnormal thyroid ultrasound TISSUE SUBMITTED: A ? FNA, right thyroid fluid, B ? FNA, right thyroid x12 slides DIAGNOSIS CYTOLOGY A. Right thyroid nodule fluid, fine needle aspiration (cytospin and cell block): A few clusters of benign follicular cells noted. B. Right thyroid nodule, fine needle aspiration (smears): Consistent with benign follicular/colloid nodule ([place] category II). Adequate for evaluation. SJ:meghna 11/02/2021 COMMENT Correlation with clinical, radiologic findings and appropriate follow up are necessary. Case has been reviewed in consultation with Dr. Hernandez who concurs with the above diagnosis. IDC:AM CYTOLOGY STUDY Slides are reviewed. CYTOLOGY GROSS A - Received is 15 ml of brown cloudy fluid labeled with the patient's name and and designated per the requisition as right thyroid. Submitted for cytology preparation including cell block. B - Received are 12 smears labeled with the patient's name and designated per the requisition as right thyroid. Submitted for staining. / meghna 11/01/2021 TC:5 CPT: 66535 x2, 57447
== END | disposition home or self-care (01) ==
PROVIDERS: PCP Student in an Organized Health Care Education/Training Program; Visit Provider Surgery
DX: E04.1 Nontoxic single thyroid nodule (principal)
CPT/HCPCS: 88108; 88305; 88313

== ENCOUNTER 2023-10-17 14:58 | Outpatient (RCR) | payer MEDICAID, SELFPAY ==
--- NOTE | 2023-10-17 17:19 | HP.FCE ---
Task Lift Floor (Occasional 1-33% of Day): 25 Floor (Frequent 34-66% of Day): 12.5 Floor (Constant 67-100% of Day): 5.26 Floor PDL: Light Knee (Occasional 1-33% of Day): 25 Knee (Frequent 34-66% of Day): 12.5 Knee (Constant 67-100% of Day): 5.26 Knee PDL: Light Waist (Occasional 1-33% of Day): 32.5 Waist (Frequent 34-66% of Day): 16.25 Waist (Constant 67-100% of Day): 6.84 Waist PDL: Light Shoulder (Occasional 1-33% of Day): 30 Shoulder (Frequent 34-66% of Day): 15 Shoulder (Constant 67-100% of Day): 6.31 Shoulder PDL: Light Overhead (Occasional 1-33% of Day): 25 Overhead (Frequent 34-66% of Day): 12.5 Overhead (Constant 67-100% of Day): 5.26 Overhead PDL: Light Comments: pt floor, knee, waist, shoulder and overhead lift capacity light Work Activity/Posture Bending: Frequent Ability (34-66% of day) Squatting: Occasional Ability (1-33% of day) Kneeling: Occasional Ability (1-33% of day) Reaching out: Frequent Ability (34-66% of day) Reaching up: Frequent Ability (34-66% of day) Sitting: Occasional Ability (1-33% of day) Walking: Frequent Ability (34-66% of day) Standing: Frequent Ability (34-66% of day) Reference Reference: Duration Sedentary Sedentary Light Light Light Medium Medium Medium Heavy Very Heavy Heavy Occasional (0-33% of day) Frequent (34-66% of day) Constant (67-100% of day) 10 # Negligible Negligible 15 # 8 # Negligible 20 # 10# Negli. 35 # 18 # 7 # 50 # 25 # 10 # 75 # 100 # >100 # 38 # 50 # >50 # 15 # 20 # >20 # Patient Information Height: 5 ft 10 in Weight:: 90.718 kg Hand Dominance: R Medical History Medical History Including Restrictions: This 63 year old male with hx of back problems starting in . Per medical history neck pain, lumbar spondylosis, chronic B low back pain with sciatica, anxiety with depression, dysthymia, L hip pain, L sciatica, neuropathy, occipital neuralgia of L side. Per pt his sciatica symptoms started approx 10 years ago. Pt did see PT for back problems for approx 6 weeks at 2-3x a week. Pt states reports ablasions to back for treatment once a year in May however wears off by December pt also reports receiving x3 epidurals for back. does not wear brace. 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 first floor set up there is a basement goes down into basement daily (12 steps with hand rail). Pt is I in ADL tasks as well as IADL tasks. Drives. Bathroom set up wit tub shower grab bars no seat. standard commode no bars. Physical Examination Physical Examination: pt arrives able to walk from waiting room back to therapy room no AD needed HR 70 02 98% at rest ROM: BUE WFL BLE WFL Strength: L shoulder flexion 8.9 # L ticep 17.9# L bicep 35# R shoulder flexion 21.6# R tricep 26.7# R bicep 50# LLE hip flexion 32.2# LLE quad 29.7# LLE hamstring 31.7# RLE hip flexion 40# RLE quad 30.8# RLE hamstring 33.6# Right Wastewater Plant Operator Strength Average: 100.00 Right Wastewater Plant Operator Strength Percentile: 69.1 percentile Left Wastewater Plant Operator Strength Average: 105.00 Left Wastewater Plant Operator Strength Percentile: 82.7 percentile Right Lateral Pinch Average: 23.33 Right Lateral Pinch Percentile: 90th percentile Left Lateral Pinch Average: 22.00 Left Lateral Pinch Percentile: 90th percentile Right Tripod Pinch Average: 24.33 Right Tripod Pinch Percentile: >90th percentile Left Tripod Pinch Average: 25.33 Left Tripod Pinch Percentile: >90th percentile Sensation: occ tingling in hands comes and goes feels hot and cold [place] L hand 3.22 R hand 3.22 diminished light touch Fine Motor: occ difficulty picking up small items 9hole peg: L 20 sec R 20 sec L 20 sec R 18 sec L 18 sec R 19 sec L average 19.33 indicating pt is < 90th percentile R average 19 indicating pt is in 75th percentile Balance: standing forward reach at 9 indicating pt at x2 greater risk for falls Non Material Handling Activities Bending: bending 3/3 trial bending at own pace 1010 slight LOB self correct HR 98 bpm 02 96% no external support bending fast 10 not external support HR 92 bpm 02 98% Squatting: squat 3/3 trial squat at own pace 10/10 external support semi squat HR 98% 02 92% squat fast 10 external support HR 81 bpm 02 98% couldnt continue due to L knee pain which pt rates as 10/09 Kneeling: kneel 3/3 trial kneel at own pace 710 HR 102 bpm 02 97% couldnt continue due to fatigue Reaching out/up: reaching out: 3/3 trial 10/10 own pacae 10/10 fast 88 bpm 98 02% reaching up: 3/3 trial 10/10 own pace 10/10 fast HR 89 bpm 02 98% R arm gets shorter with reaching up and pops R hip out Walking: able to walk around therapy gym x5 to and from therapy gym -- [id number] pt reports he could have kept going for a bit reports he walks for exercise and typically now about a half a mile HR 100 bpm and 02 97% Standing: pt is able to stand for approx 20 min duration before needing to sit for RB does demonstrate frequent weight shift in standing for offset of pressure Sitting: pt is able to sit for intake of history approx 30 min no frequent changes in posture noted pt states he can sometimes sit for up to 3 hours however other days only able to sit for approx 30 min before needing to return to stand Climbing Stairs: Pt able to ascend and descend 10 stairs occ need for external support of rail with self correction of LOB once at top of steps and once at bottom of steps reciprocal pattern going up and down Dynamic Occasional Lifting Capacity Floor Lift: box (15#) + 10 pounds = total 25# completes lift by staying in squatted position to lift to desk height due to limitations in knees when pt places box back on grounds maintenance manager instinctively slide up on box HR 89 bpm and 02 89 % Knee Lift: box (15#)+ 10 pounds = total 25# squat and able to bring up with legs extended HR 98 bpm and 02 98% Waist Lift: box (15#) + 17.5#= total 32.5# Shoulder Lift: box (15#) +15#= total 30# extends at back compensation HR 92 bpm 02 98% inctrease in back pain to 3/10 Overhead Lift: box (15#) + 10#= total 25# extends at back compensates HR 82 bpm 02 97% Carrying: Box (15#) + 10#= total 25# walks across room and back 49 feet
== END 2023-10-17 19:00 | disposition home or self-care (01) ==
LOC: OT 14:58
PROVIDERS: PCP Student in an Organized Health Care Education/Training Program; Referring Provider Nurse Practitioner Family; Visit Provider Nurse Practitioner Family
DX: F45.42 Pain disorder with related psychological factors (principal); M54.2 Cervicalgia; I10 Essential (primary) hypertension; M47.816 Spondylosis without myelopathy or radiculopathy, lumbar region; M54.50 Low back pain, unspecified; G89.29 Other chronic pain; F41.8 Other specified anxiety disorders; F34.1 Dysthymic disorder; M25.552 Pain in left hip; M54.32 Sciatica, left side; M54.81 Occipital neuralgia; G62.9 Polyneuropathy, unspecified
CPT/HCPCS: 97750